=== PATIENT | male | born 1940 | race Caucasian/White ===

== ENCOUNTER 2020-01-02 17:27 | Inpatient (IN) | payer OTHER, SELFPAY ==
[2020-01-02] VITALS (10 sets, daily range): BP systolic 141–159; BP diastolic 78–92; PULSE 84–106; RESP 14–24; TEMP 36.6–36.9; O2SAT 95–100; BMI 19.4; BMI 18.5
--- NOTE | 2020-01-02 17:32 | EKG12_ITS ---
Test Reason : CP Blood Pressure : / mmHG Vent. Rate : 085 BPM Atrial Rate : 085 BPM P-R Int : 256 ms QRS Dur : 094 ms QT Int : 352 ms P-R-T Axes : 065 047 046 degrees QTc Int : 418 ms Sinus rhythm with 1st degree A-V block Otherwise normal ECG Confirmed by KAVON JUAREZ, MAYDA ([id number]), manager editorial MELYSSA RAIN ([id number]) on 01/04/2020 1:08:10 PM Referred By: TEX Confirmed By:MAYDA JACOBSON MD
--- NOTE | 2020-01-02 17:40 | RAD_ITS ---
STUDY: X-RAY CHEST REASON FOR EXAM: Male, 79 years old. Chest pain started today. TECHNIQUE: AP portable COMPARISON: None. FINDINGS: There is mild retrocardiac left basilar atelectasis or infiltrate. There is also interstitial thickening in the right lower lobe with slightly increased density possibly inflammatory.. There is apical pleural thickening bilaterally. There is no pleural effusion or pneumothorax Normal size heart. Normal mediastinum and matt. Normal visualized pulmonary arteries. Mildly calcified aortic arch and descending thoracic aorta. Dorsal spine demonstrates degenerative changes. Normal visualized ribs, clavicles, and shoulders. There is no demonstrated abnormality of the visualized soft tissue structures of the upper abdomen. RAD/Chest 1 View (Portable) IMPRESSION: Mild subsegmental atelectasis or infiltrate in left lower lobe and prominence of the interstitial markings and slightly increased density the right base possibly inflammatory. Electronically Signed: Juan A Christianson MD at 17:59 EDT , Service support ,
--- NOTE | 2020-01-02 17:40 | ED.VIS.GEN ---
History of Present Illness Chief Complaint: Chest Pain Informant: Patient Onset: Today, Hours - 8 hours Context: Sudden Onset Timing: Continuous Current Severity: Moderate Maximum Severity: Severe Worsened by: Mowing the grass Associated Symptoms: SOB Narrative: 79-year-old male with no reported medical problems presents with chest pain. He states it started at 9 AM this morning. This was just after he ate a bowl of cereal. He does say he has a history of GERD and does say that it is burning. But he also describes pain all over his chest. He went to mow the grass and was able to finish mowing the yard however afterwards his chest pain was worse. He does complain of shortness of breath. He has not had a fever or cough. Prior to this he was otherwise well. He states his last stress test was 20 years ago. Denies smoking history. Denies EtOH use. Past Medical History - Allergies and Home Meds Allergies/Adverse Reactions: Allergies No Known Allergies Allergy (Verified 01/02/20 17:29) Past Medical History: - - Hiatal Hernia Lives: With Family Smoking Status: Never smoker Alcohol: None Drugs: None - Family History Maternal Family History: Reports: - - no CAD Review of Systems All systems negative except as indicated General: Denies: Chills, Fever Eyes: Denies: Visual changes - left, Visual changes - right, Visual changes - bilaterally, Blurred vision - left, Blurred vision - right, Blurred Vision - bilaterally, Diplopia, -, - Cardiovascular: Reports: Chest pain Respiratory: Reports: Dyspnea Gastrointestinal: Reports: Nausea. Denies: Vomiting Genitourinary: Denies: Dysuria Musculoskeletal: Denies: Myalgias Skin: Denies: Rash, Abscess Neurological: Denies: Headache Psych: Denies: Depression Physical Exam Vital Signs/Narrative: Vital Signs Temp Pulse Resp BP Pulse Ox 01/02/20 17:28 97.8 F 86 15 159/92 H 95 Inital Vital Signs reviewed: Yes General: Well nourished, Well developed Head: Normocephalic, Atraumatic Eyes: Perrl, EOMI Neck: Supple, Nontender Cardiovascular: Regular rate, Regular rhythm, No murmurs Respiratory: No distress, CTA bilaterally, Chest nontender Abdomen: Soft, Nontender, Nondistended Extremities: Nontender, No edema Skin: Normal color, No rash, Cyanosis, Diaphoresis Neurological: Alert, Oriented x3 Psychological: Normal affect Diagnostic/Tx/Re-eval Chest X-Ray - ED: 1 View, - - Mild subsegmental atelectasis or infiltrate in left lower lobe and prominence of the interstitial markings and slightly increased density the right base possibly inflammatory. - Rhythm Strip Rhythm Strip: Sinus Rhythm Rate: 85 - AZ interval 256 msQRS duration 94 msQTC 418 ms. first-degree AV block - Medical Decision Making Patient presented today with chest pain which she had had for several hours prior to arrival. His EKG showed a first-degree AV block but there is no sign of ischemic change. He did take Tylenol prior to arrival when he got aspirin here and he states that his pain had improved. Chest x-ray showed concern for infiltrate which could possibly be inflammatory. His lab work showed that he is slightly dehydrated but his troponin is negative. I did reinterviewed him about his exposure to COVID?19 given that he has infiltrates that look inflammatory on his x-ray. He does state they have people coming in and out of his house but there are mostly family members. These family members also going to town and other households. He is not sure of what his risk would be. Given that he had chest pain and findings concerning for pneumonia I did admit the patient. The admitting provider did not want to start antibiotics right away. Patient was again given aspirin and was chest pain-free on admission. Admitting physician did wish to have a COVID?19 screening on him. This is pending on admission. ED Disposition - Plan for ED Patient: Disposition: Acute Care [facility] Diagnosis: Chest pain, Infiltrate noted on imaging study, Abnormal chest xray
[2020-01-02 17:47] LABS: Absolute Lymphocyte Count 1.66 X10^3/uL (0.83-4.51); Absolute Neutrophil Count 8.1 X10^3/uL (2.0-7.7); Basophil# 0.02 X10^3/uL; Basophil% 0.2 % (0-1); Eosinophil# 0.09 X10^3/uL; Eosinophils% 0.8 % (0-5); Hematocrit 41.2 % (40-54); Hemoglobin 12.9 g/dL (13.0-16.5); Lymphocyte # 1.66 X10^3/ul (4.0); Lymphocyte % 15.7 % (19-41); Mean Corp Hgb Conc 31.3 g/dL (32-36); Mean Corpuscular Hgb 28.7 pg (27.0-32.0); Mean Corpuscular Volume 91.6 fL (80-94); Mean Platelet Vol. 9.4 fl (6.2-12.0); Monocyte% 6.6 % (0-10); NRBC Flagged by Analyzer 0 % (0-5); Neutrophil % 76.5 % (47-70); Platelet Count 206 K/mm3 (150-450); RBC Distribution Width CV 12.8 % (11.6-14.6); RBC Distribution Width SD 42.5 fl (35.1-43.9); White Blood Count 10.6 K/mm3 (4.4-11.0)
[2020-01-02] MEDS: Aspirin 81 MG TAB.CHEW 324 MG PO (17:48)
[2020-01-02 17:56] LABS: Anion Gap 5 (5-15); BUN 28 mg/dL (7-18); BUN/Creat Ratio 27.5 RATIO (10-20); Calcium,Total 9.9 mg/dL (8.5-10.1); Chloride 103 mmol/L (98-107); Creatinine, Serum 1.02 mg/dL (0.70-1.30); EST Glomerular Filtration Rate 75 mL/min (>60); Est Glom Filt Rate - Afr Amer 90 mL/min (>60); Estimated Creatinine Clearance 50.25 ml/min; Glucose 105 mg/dL (74-106); Potassium 4.1 mmol/L (3.5-5.1); Sodium Level 139 mmol/L (136-145)
--- NOTE | 2020-01-02 19:04 | HP.PCM_ITS ---
Problem List (1) Chest pain Status: Acute (2) Abnormal chest xray Status: Acute History of Present Illness Date of Admission: 01/02/20 Chief Complaint: chest pain The patient is a 79 year old M awoke today and later started having chest pain. Chest pain was across his chest and went up into his jaw. It was associated with some numbness down his arm as well as shortness of breath. Patient denies having symptoms similar to this. Chest pain was at rest and he would mow the lawn had no difficulties in turn when he came back. Patient presented to the emergency room for evaluation. Patient's work-up in the emergency room was unremarkable with exception of chest x-ray that showed a possible right lower lobe infiltrate versus atelectasis. Patient states that there is people in and out of his house but denies any overt sick contacts. Patient otherwise feels well. [] Past Medical History Allergies No Known Allergies Allergy (Verified 01/02/20 17:29) Home Medications: Ambulatory Orders Medication Instructions Recorded Aspirin 81 mg PO DAILY 01/02/20 Ferrous Sulfate [Iron] 325 mg PO DAILY 01/02/20 Lives: With Family Smoking Status: Never smoker Alcohol: None Drugs: None - *Family History Maternal History Items: - - no CAD Review of Systems Constitutional: Denies: Anorexia, Chills, Fever, Night Sweats Eyes: Denies: Blurred vision, Double vision HEENT: Denies: Head Aches, Sinus Congestion, Sinus Drainage Cardiovascular: Reports: Chest Pain. Denies: Edema Respiratory: Reports: Shortness of Breath. Denies: Cough, Sputum production Gastrointestinal: Denies: Abdominal Pain, Nausea, Vomiting Genitourinary: Denies: Dysuria Musculoskeletal: Denies: Joint Pain, Joint Tenderness Skin: Denies: Rash, Wounds Psychiatric: Denies: Anxiety, Depression Hematologic/ Lymphatic: Denies: Easy Bruising, Easy Bleeding, Hx of blood clot Comment: All review of systems were negative except as mentioned above in the history of present illness and the other review of systems. VTE Information - Inpt Only VTE Present on Admission: No VTE Mechan Device Prophylaxis: None VTE Pharm Prophylaxis ordered?: No Reason prophylaxis not ordered:: Treatment Not Indicated Patient Problems: Active and Suspected Problems Chest pain (Acute) Abnormal chest xray (Acute) - Physical Exam Vitals/I&O's: Vital Signs Temp Pulse Resp BP Pulse Ox 36.6 C 84 19 H 141/78 H 99 01/02/20 17:28 01/02/20 18:27 01/02/20 18:27 01/02/20 18:27 01/02/20 18:27 Oxygen Delivery Method Room Air Weight: 61.5 kg Body Mass Index (BMI) 19.4 General: Alert, Cooperative, No apparent distress HEENT: Atraumatic, Normocephalic Neck: No Nodes, Thyroid Normal Size and Texture Lungs: Normal air movement, - - RLL crackles. Cardiovascular: Regular rate, Regular Rhythm, Normal S1, Normal S2, No murmurs Abdomen: Bowel Sounds Present, Soft, Non Tender, Non-Distended, No Hepato- splenomegaly Extremities: No edema, No Calf Tenderness Skin: No rashes, No breakdown Musculoskeletal: No Tenderness to Palpation of Joints or Extremities, No Muscle Wasting Psych/Mental Status: Normal Affect, Appropriate Laboratory Results 01/02/20 17:30: WBC 10.6, RBC 4.50 L, Hgb 12.9 L, Hct 41.2, MCV 91.6, MCH 28.7, MCHC 31.3 L, RDW Std Deviation 42.5, RDW Coeff of Mayte 12.8, Plt Count 206, MPV 9.4, Immature Gran % (Auto) 0.200, Neut % (Auto) 76.5 H, Lymph % (Auto) 15.7 L, Mckinley % (Auto) 6.6, Eos % (Auto) 0.8, Baso % (Auto) 0.2, Absolute Neuts (auto) 8.1 H, Absolute Lymphs (auto) 1.66, Nucleated RBC % 0 01/02/20 17:30: Sodium 139, Potassium 4.1, Chloride 103, Carbon Dioxide 31.0, Anion Gap 5, BUN 28 H, Creatinine 1.02, Estim Creat Clear Calc 50.25, Est GFR (MDRD) Af Amer 90, Est GFR (MDRD) Non-Af 75, BUN/Creatinine Ratio 27.5 H, Glucose 105, Calcium 9.9, Troponin I < 0.015 Chest x-ray personally reviewed and showed right lower lobe infiltrate versus atelectasis. EKG reviewed and showed normal sinus rhythm with a first-degree AV block. No comparison available Assessment/Plan All Active Problems Chest pain (Acute) Abnormal chest xray (Acute) 1. Chest pain, atypical: Concerning signs given the radiation paresthesias that he is. [place] score of 128. ROLAND score of 3. Patient already on aspirin and will continue. We will cycle troponins and check a stress echocardiogram. Patient made aware that he would not be able to have a stress test until the . Additionally, given the atypical nature, I will check a d-dimer. If elevated for age then would recommend a CT angiogram of the chest and I did discuss this possibility with the patient and his son at bedside. 2. Abnormal chest x-ray. Clinically feel the patient has pneumonia that he does have some crackles in the bases. He is afebrile and has no leukocytosis. COVID-19 testing ordered in the emergency room. Would hold off on antibiotics at this time as clinically he is stable however if his condition worsens then would need to reconsider next. Will add incentive spirometer. 3. 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 Will ask for nutrition to make further recommendations. 4. VTE prophylaxis: Low risk at this time though this may be subject to change based on further findings. No VTE prophylaxis at this time. 5. Advanced care planning: Discussed with the patient. Patient wishes to be full CODE STATUS. 6. Disposition: Pending additional testing. Patient will be admitted as length of stay will be greater than 2 midnights. Inpatient E&M: [id number] Init Hosp L3
--- NOTE | 2020-01-02 19:53 | EKG12_ITS ---
Test Reason : RHYTHM Blood Pressure : / mmHG Vent. Rate : 108 BPM Atrial Rate : 108 BPM P-R Int : 226 ms QRS Dur : 118 ms QT Int : 322 ms P-R-T Axes : 043 036 007 degrees QTc Int : 431 ms Sinus tachycardia with 1st degree A-V block Right bundle branch block ST elevation consider inferolateral injury or acute infarct Abnormal ECG When compared with ECG of 02-JAN-2020 19:43, MANUAL COMPARISON REQUIRED, DATA IS UNCONFIRMED Confirmed by KAVON JUAREZ, MAYDA ([id number]), commercial production editor MELYSSA RAIN ([id number]) on 01/05/2020 10:17:37 AM Referred By: CHANA Confirmed By:MAYDA JACOBSON MD
--- NOTE | 2020-01-02 20:15 | NURSING ---
Dr. Horn notified that patient is having long runs of V-Tach. Notified Dr. Horn that patient has not had a magnesium level checked. Dr. Horn states that she will review the chart and enter orders.
[2020-01-02 20:22] LABS: D-Dimer Quantitative (DVT/PE) 2.03 FEU/ug/m (0.27-0.49)
--- NOTE | 2020-01-02 20:44 | CT_ITS ---
STUDY: CTA CHEST REASON FOR EXAM: Male, 79 years old. R/O PE RADIATION DOSAGE (If Supplied By Facility): CTDIvol = ( 6.07 ) mGy, DLP = ( 229.79 ) mGycm TECHNIQUE: The examination was performed with the intravenous administration of IV 100 ML ISOVUE 370. Post-processing of the angiographic images was performed, with multiplanar reformation and 3D reconstruction. Individualized dose optimization techniques were used for this CT. COMPARISON: Portable chest January 02, 2020. FINDINGS: Normal enhancement of the main pulmonary artery and right and left pulmonary arteries. Normal enhancement of the bilateral peripheral pulmonary arteries. There is no demonstrated pulmonary embolism. Mild atherosclerotic changes of the aorta without evidence for aneurysm There is no demonstrated aortic dissection. Normal heart and pericardium. Tiny calcified mediastinal and hilar nodes consistent with old granulomatous disease. Normal visualized trachea and bronchi. The lungs are well expanded. Mild interstitial thickening and emphysematous changes. There is mild right basilar atelectasis or infiltrates.. Calcified granulomata within the right middle and lower lobes mild pleural parenchymal scarring in the apices. No pleural effusion or pneumothorax. Normal chest wall structures. Dorsal spine demonstrates mild spondylosis. Normal visualized upper abdomen. CT/CTA Chest W/WO Contrast IMPRESSION: Mild chronic interstitial changes and old granulomatous disease. Mild right basilar atelectasis or infiltrate. No evidence for pulmonary embolus Electronically Signed: Juan A Christianson MD at 21:29 EDT , Service support ,
[2020-01-02 20:48] LABS: AST(SGOT) 23 U/L (15-37); Alanine Aminotransfer ALT/SGPT 21 U/L (16-61); Albumin, Serum 3.7 g/dL (3.2-5.0); Alkaline Phosphatase 90 U/L (45-117); Bilirubin, Direct 0.19 mg/dL (0.00-0.30); Globulin 4.4 g/dL (2.2-4.2); Magnesium 2.1 mg/dL (1.6-2.6); Protein, Total 8.1 g/dL (6.4-8.2)
[2020-01-02 21:43] LABS: Probe Check PASS; Specimen Processing Control PASS
[2020-01-02] MEDS: Enoxaparin 60 MG/0.6 ML Syringe SC (22:02)
[2020-01-02] MEDS: Acetaminophen 325 MG Tablet 650 MG PO (22:08)
--- NOTE | 2020-01-02 23:54 | PCM.PN.BLA ---
Progress Note Called about patient's elevated d-dimer of 2.03. Requested CTA of the chest - negative for acute PE. COVID-19 test negative Patient's troponin elevated to 0.214 PLAN: Started on therapeutic Lovenox Trend troponins We will consult cardiology in am STROKE Vital Signs/Narrative: Vital Signs Temp Pulse Resp BP Pulse Ox 01/02/20 22:09 98.4 F 88 16 142/89 H 98 01/02/20 22:00 88 01/02/20 20:30 24 H 99
[2020-01-03] VITALS (47 sets, daily range): BP systolic 56–116; BP diastolic 24–71; PULSE 65–135; RESP 15–32; TEMP 36.3–38.1; O2SAT 92–100
--- NOTE | 2020-01-03 00:29 | NURSING ---
Patient notified this nurse that his home CPAP setting is [address] Horn notified, telephone order received.
[2020-01-03] MEDS: Nitroglycerin (INPATIENT USE) 0.4 MG TAB.SUBL SUBLINGUAL ×2 (03:47→03:53)
--- NOTE | 2020-01-03 03:58 | NURSING ---
Patient's blood pressure dropped to 62/36 after second nitro tablet[address] Dr. Horn paged for IVF bolus order.
--- NOTE | 2020-01-03 04:07 | NURSING ---
Patient's BP is 63/34. Dr. Horn paged second time via paper products machine operator.
--- NOTE | 2020-01-03 04:18 | NURSING ---
Dr. Horn returned page, notified of BP change after nitro, order for IVF bolus received. Bolus started.
[2020-01-03] MEDS: Enoxaparin 60 MG/0.6 ML Syringe SC (06:18)
[2020-01-03 07:12] LABS: Cholesterol 217 mg/dL (200); High Density Lipoprotein 59 mg/dL; Triglycerides 60 mg/dL; Very Low Density Lipoprotein 12 mg/dL (5-40)
[2020-01-03] MEDS: Ferrous Sulfate 325 MG Tablet PO (08:58)
[2020-01-03] MEDS: Aspirin 81 MG TAB.CHEW PO (08:58)
--- NOTE | 2020-01-03 09:00 | CON.PCM_ITS ---
Reason for Consult Date of Consultation: 01/03/20 Reason for Consultation: Chest discomfort History of Present Illness: The patient is a 79 year old M with no previous significant cardiac history who presented to the hospital last night complaining of chest discomfort. He says that he has apparently been having this chest discomfort over the last few weeks but it appeared to get worse yesterday. It was not associated with eating is not necessarily been associated with activity. He seems to have it when he takes a deep breath. He has had no cough no syncope no dizziness no diaphoresis no pedal edema. He is usually on minimal medical therapy. He presented to the emergency room was evaluated his EKG was noted to be normal and cardiac enzymes were minimally abnormal. In the night he did have an episode of a tachycardia which was unbeknownst to him. He did have an episode in the night where he had some chest discomfort required sublingual nitroglycerin with dropping of his blood pressure and requiring a fluid bolus. He currently is feeling well with no significant discomfort. [] Past Medical History Allergies/Adverse Reactions: Allergies No Known Allergies Allergy (Verified 01/02/20 17:29) Home Medications: Ambulatory Orders Medication Instructions Recorded Aspirin 81 mg PO DAILY 01/02/20 Ferrous Sulfate [Iron] 325 mg PO DAILY 01/02/20 Surgical History: no surgical history - *Family History Maternal History Items: - - no CAD Lives: With Family Smoking Status: Never smoker Alcohol: None Drugs: None Review of Systems - Review of Systems General: Denies: Fever, Night Sweats, Fatigue HEENT: Denies: Vision Change Cardiovascular: Reports: Chest Discomfort, Chest Discomfort at Rest. Denies: Shortness of Breath, Orthopnea, PND, Peripheral Edema, Palpitations, Lightheadedness, Dizziness, Near Syncope, Syncope Respiratory: Denies: Cough, Sputum Production, Hemoptysis Gastrointestinal: Denies: Hematemesis, Hematochezia, Melena Genitourinary: Denies: Dysuria, Hematuria Skin: Denies: Rash Neurological: Denies: Dizziness Psychiatric: Denies: Anxiety Subjectve: Pleasant gentleman in no distress Objective: Vital Signs Temp Pulse Resp BP Pulse Ox 98.5 F 80 16 93/56 L 97 01/03/20 06:17 01/03/20 06:17 01/03/20 06:17 01/03/20 06:17 01/03/20 06:17 Oxygen Delivery Method Room Air Weight: 133 lb Body Mass Index (BMI) 18.5 Intake and Output for Last 24 Hours 01/01/20 01/02/20 01/03/20 23:59 23:59 23:59 Intake Total 1340 / 1340 Balance 1340 / 1340 General: Awake, Alert, Oriented x 3 HEENT: PERRL, EOMI, Sclera Non Icteric Neck: Supple, Good ROM, No Lymph Node Enlargement Lungs: Clear to auscultation Cardiovascular: Regular Rhythm, Normal S1, Normal S2, No Murmurs, No Rubs, No Gallops Vascular: No Carotid Bruits, Normal Femoral Pulses, Normal Radial Pulses, Normal Dorsalis Pedal Pulse, Normal Posterior Tibial Pulses Abdomen: Bowel Sounds Present, Soft, Non Tender, No HSM, No Organomegaly Extremities: No Cyanosis, No Clubbing, No edema Musculoskeletal: No Erythema Skin: No Rashes Lymphatic: No Lymph Node Enlargement Neurological: No Focal Motor or Sensory Deficit Psych/Mental Status: Appropriate 01/02/20 17:30: WBC 10.6, RBC 4.50 L, Hgb 12.9 L, Hct 41.2, MCV 91.6, MCH 28.7, MCHC 31.3 L, Plt Count 206, MPV 9.4, Immature Gran % (Auto) 0.200, Neut % (Auto) 76.5 H, Lymph % (Auto) 15.7 L, [place] % (Auto) 6.6, Eos % (Auto) 0.8, Baso % (Auto) 0.2, Absolute Neuts (auto) 8.1 H, Nucleated RBC % 0 01/02/20 17:30: Sodium 139, Potassium 4.1, Chloride 103, Carbon Dioxide 31.0, Anion Gap 5, BUN 28 H, Creatinine 1.02, Est GFR (MDRD) Af Amer 90, Est GFR (MDRD) Non-Af 75, BUN/Creatinine Ratio 27.5 H, Glucose 105, Calcium 9.9, Troponin I < 0.015 01/02/20 17:30: D-Dimer Quant (PE/DVT) 2.03 H* 01/02/20 17:30: Magnesium 2.1, Total Bilirubin 0.60, Direct Bilirubin 0.19 01/02/20 20:49: Troponin I 0.214 H 01/02/20 23:53: Troponin I 0.281 H 01/03/20 05:15: Triglycerides 60, Cholesterol 217 H, LDL Cholesterol 146 H, VLDL Cholesterol 12, HDL Cholesterol 59 Rhythm: EKG: Normal sinus rhythm with no acute changes ECHO: Stress Test: Cardiac Cath: PCI: CT Surgery: Holter monitor: EPS: PPM: CXR: Chest CT Scan: Assessment/Plan 1. Non-ST elevation myocardial infarction/acute coronary syndrome * He presents with chest discomfort which is concerning for an acute coronary syndrome. * Recommendation will be to start aspirin, clopidogrel, and beta-cody. * Based on the symptomatology I would recommend a cardiac catheterization in a.m. At this particular time he appears to be stable and there is no reason to take him to the lab right now the risk benefits and alternatives of been explained to him he understands and agrees to proceed. * High intensity statin has been started. 2. Cardiac arrhythmia * Patient was noted to have a wide-complex tachycardia. However there was one-to-one conduction noted in the above is likely suggestive of an atrial tachyarrhythmia with aberrancy. * Beta-blockers have been started which would be continued * Electrolytes will be checked. * * Thank you for allowing me to participate in the care of your patient. Please don't hesitate to call if any issues arise.
[2020-01-03] MEDS: Clopidogrel Bisulfate 300 MG Tablet PO (11:31)
--- NOTE | 2020-01-03 11:33 | PN_ITS ---
<Cliff Craig - Last Filed: 01/03/20 11:33> Patient Problems: Active and Suspected Problems Chest pain (Acute) Abnormal chest xray (Acute) Infiltrate noted on imaging study (Acute) Reason for Visit: Pt resting comfortably in bed. Ongoing chest pain . 4/10 pressure across chest. SOB with exertion especially walking uphill. No diaphoresis or nausea, no radiation into neck/jaw/arms. Pt agreeable to cath tomorrow. Vitals/I&O's: Vital Signs Temp Pulse Resp BP Pulse Ox 99.7 F H 125 H 24 H 89/46 L 97 01/03/20 11:30 01/03/20 11:30 01/03/20 11:30 01/03/20 11:30 01/03/20 11:30 Oxygen Delivery Method Room Air Weight: 133 lb Body Mass Index (BMI) 18.5 Intake and Output for Last 24 Hours 01/01/20 01/02/20 01/03/20 23:59 23:59 23:59 Intake Total 1340 / 1340 Balance 1340 / 1340 General: Alert, Oriented x3, Cooperative HEENT: Atraumatic, PERRLA, EOMI, Normocephalic Neck: Supple, No JVD, Negative Carotid Bruits Lungs: Clear to auscultation, Normal air movement Cardiovascular: Regular rate, No murmurs Abdomen: Bowel Sounds Present, Soft, Non Tender Extremities: No edema, Capillary Refill Less than 3 Seconds Skin: No rashes, No breakdown Musculoskeletal: No Tenderness to Palpation of Joints or Extremities Neurological: Cranial nerves II-XII grossly intact Psych/Mental Status: Normal Affect, Appropriate, Alert and oriented to time, place, person, mood and affect Laboratory Results 01/02/20 17:30: WBC 10.6, RBC 4.50 L, Hgb 12.9 L, Hct 41.2, MCV 91.6, MCH 28.7, MCHC 31.3 L, RDW Std Deviation 42.5, RDW Coeff of Mayte 12.8, Plt Count 206, MPV 9.4, Immature Gran % (Auto) 0.200, Neut % (Auto) 76.5 H, Lymph % (Auto) 15.7 L, [place] % (Auto) 6.6, Eos % (Auto) 0.8, Baso % (Auto) 0.2, Absolute Neuts (auto) 8.1 H, Absolute Lymphs (auto) 1.66, Nucleated RBC % 0 01/02/20 17:30: Sodium 139, Potassium 4.1, Chloride 103, Carbon Dioxide 31.0, Anion Gap 5, BUN 28 H, Creatinine 1.02, Estim Creat Clear Calc 50.25, Est GFR (MDRD) Af Amer 90, Est GFR (MDRD) Non-Af 75, BUN/Creatinine Ratio 27.5 H, Glucose 105, Calcium 9.9, Troponin I < 0.015 01/02/20 17:30: D-Dimer Quant (PE/DVT) 2.03 H* 01/02/20 17:30: Magnesium 2.1, Total Bilirubin 0.60, Direct Bilirubin 0.19, AST 23, ALT 21, Alkaline Phosphatase 90, Total Protein 8.1, Albumin 3.7, Globulin 4.4 H 01/02/20 20:30: COVID-19 ([place]) Negative 01/02/20 20:49: Troponin I 0.214 H 01/02/20 23:53: Troponin I 0.281 H 01/03/20 05:15: Triglycerides 60, Cholesterol 217 H, LDL Cholesterol 146 H, VLDL Cholesterol 12, HDL Cholesterol 59 Current Medications Acetaminophen (Tylenol) 650 mg PO Q6H PRN PRN PRN Reason: Pain Score 1-10/Temp > 100.7 F Last Admin: 01/02/20 22:08 Dose: 650 mg Documented by: Aspirin ([facility], [facility]) [facility] Last Admin: 01/03/20 08:58 Dose: 81 mg Documented by: Clopidogrel Bisulfate (Plavix) 75 mg PO DAILY [facility] Dextrose (D50w Syringe) 0 gm IV X1 PRN; Protocol PRN Reason: Hypoglycemia Enoxaparin Sodium (Lovenox) 60 mg SC Q12@0600,1800 [facility] Last Admin: 01/03/20 06:18 Dose: 60 mg Documented by: Ferrous Sulfate (Ferrous Sulfate) [facility] Last Admin: 01/03/20 08:58 Dose: 325 mg Documented by: Glucagon () 1 mg IM .X1 PRN PRN Reason: Hypoglycemia Sodium Chloride () 1,000 mls @ 15 mls/hr IV .Q48H [facility] Metoprolol Tartrate (Lopressor (Beta Davey)) 12.5 mg PO BID [facility] Morphine Sulfate () 1 mg IV Q4H PRN PRN PRN Reason: Pain Score 6-10/10 Ondansetron HCl (Zofran) 4 mg IV Q8H PRN PRN PRN Reason: NAUSEA/VOMITING Sodium Chloride () 10 - 40 ml IV UD PRN PRN Reason: SALINE FLUSH STROKE Vital Signs/Narrative: Vital Signs Temp Pulse Resp BP Pulse Ox 01/03/20 11:30 99.7 F H 125 H 24 H 89/46 L 97 Medical Necessity - Tobacco Use Smoking Status: Never smoker Assessment/Plan All Active Problems Chest pain (Acute) Abnormal chest xray (Acute) Infiltrate noted on imaging study (Acute) 1. NSTEMI - troponin trending up, ongoing CP. Cath tomorrow per cardio. Nonspecific ST segment changes, t wave flattening. D dimer elevated - CTA without PE. TChol 217, LDL 146. Stopped nitro due to hypotension. Continue BID lovenox 2. Nonsustained Vtach - beta davey initiated. 3. Hx iron deficiency - continue PO iron replacement, mild anemia. 4. Possible underlying chronic lung disease - CA shows old granulomatous dz, chr onic interstitial changes - should have PFTs as o/p. DVT ppx: lovenox This patient was seen by Cliff Craig PA-C under the supervision of Dr. Skelton. <Noe Skelton F - Last Filed: 01/03/20 14:25> Vitals/I&O's: Vital Signs Temp Pulse Resp BP Pulse Ox 97.3 F L 82 32 H 89/58 L 100 01/03/20 12:30 01/03/20 13:49 01/03/20 13:27 01/03/20 13:49 01/03/20 13:27 Oxygen Flow Rate (L/min) 3 Oxygen Delivery Method Room Air Weight: 133 lb 0.007 oz Body Mass Index (BMI) 18.5 Intake and Output for Last 24 Hours 01/01/20 01/02/20 01/03/20 23:59 23:59 23:59 Intake Total 2065.95 / 2065.95 Balance 2065.95 / 2065.95 Laboratory Results 01/02/20 17:30: WBC 10.6, RBC 4.50 L, Hgb 12.9 L, Hct 41.2, MCV 91.6, MCH 28.7, MCHC 31.3 L, RDW Std Deviation 42.5, RDW Coeff of Mayte 12.8, Plt Count 206, MPV 9.4, Immature Gran % (Auto) 0.200, Neut % (Auto) 76.5 H, Lymph % (Auto) 15.7 L, [place] % (Auto) 6.6, Eos % (Auto) 0.8, Baso % (Auto) 0.2, Absolute Neuts (auto) 8.1 H, Absolute Lymphs (auto) 1.66, Nucleated RBC % 0 01/02/20 17:30: Sodium 139, Potassium 4.1, Chloride 103, Carbon Dioxide 31.0, Anion Gap 5, BUN 28 H, Creatinine 1.02, Estim Creat Clear Calc 50.25, Est GFR (MDRD) Af Amer 90, Est GFR (MDRD) Non-Af 75, BUN/Creatinine Ratio 27.5 H, Glucose 105, Calcium 9.9, Troponin I < 0.015 01/02/20 17:30: D-Dimer Quant (PE/DVT) 2.03 H* 01/02/20 17:30: Magnesium 2.1, Total Bilirubin 0.60, Direct Bilirubin 0.19, AST 23, ALT 21, Alkaline Phosphatase 90, Total Protein 8.1, Albumin 3.7, Globulin 4.4 H 01/02/20 20:30: COVID-19 ([place]) Negative 01/02/20 20:49: Troponin I 0.214 H 01/02/20 23:53: Troponin I 0.281 H 01/03/20 05:15: Triglycerides 60, Cholesterol 217 H, LDL Cholesterol 146 H, VLDL Cholesterol 12, HDL Cholesterol 59 Current Medications Acetaminophen (Tylenol) 650 mg PO Q6H PRN PRN PRN Reason: Pain Score 1-10/Temp > 100.7 F Last Admin: 01/02/20 22:08 Dose: 650 mg Documented by: Aspirin (A[facility]in, Baby) [facility] Last Admin: 01/03/20 08:58 Dose: 81 mg Documented by: Clopidogrel Bisulfate (Plavix) 75 mg PO DAILY [facility] Dextrose (D50w Syringe) 0 gm IV X1 PRN; Protocol PRN Reason: Hypoglycemia Enoxaparin Sodium (Lovenox) 60 mg SC Q12@0600,1800 [facility] Last Admin: 01/03/20 06:18 Dose: 60 mg Documented by: Ferrous Sulfate (Ferrous Sulfate) 325 mg PO DAILYCM [facility] Last Admin: 01/03/20 08:58 Dose: 325 mg Documented by: Glucagon () 1 mg IM .X1 PRN PRN Reason: Hypoglycemia Sodium Chloride () 1,000 mls @ 15 mls/hr IV .Q48H [facility] Sodium Chloride () 1,000 mls @ 100 mls/hr IV .Q10H [facility] Last Admin: 01/03/20 12:28 Dose: 100 mls/hr Documented by: Metoprolol Tartrate (Lopressor (Beta Davey)) 12.5 mg PO BID [facility] Last Admin: 01/03/20 13:49 Dose: Not Given Documented by: Morphine Sulfate () 1 mg IV Q4H PRN PRN PRN Reason: Pain Score 6-10/10 Ondansetron HCl (Zofran) 4 mg IV Q8H PRN PRN PRN Reason: NAUSEA/VOMITING Sodium Chloride () 10 - 40 ml IV UD PRN PRN Reason: SALINE FLUSH Last Admin: 01/03/20 12:22 Dose: 10 ml Documented by: STROKE Vital Signs/Narrative: Vital Signs Temp Pulse Resp BP BP Pulse Ox 01/03/20 13:49 82 89/58 L 01/03/20 13:27 82 32 H 89/58 L 100 01/03/20 13:15 82 30 H 92/62 100 01/03/20 13:06 85 30 H 99/69 100 01/03/20 12:30 97.3 F L 80 24 H 104/68 98 01/03/20 12:23 82 103/59 L 01/03/20 12:20 135 H 100/53 L 01/03/20 12:15 100/53 L 01/03/20 12:12 116/71 01/03/20 12:10 100.5 F H 135 H 22 H 93/58 L 95 01/03/20 11:30 99.7 F H 125 H 24 H 89/46 L 97 01/03/20 11:00 93 Addendum: Dr. Skelton I personally examined the patient and reviewed the chart. I agree with the above. 79-year-old male presents from home with chest pain that radiated across his chest and up into his jaw. He did have troponins which started to rise to 0.281. He was scheduled for heart cath tomorrow by cardiology however he had increasing pain and became tachycardic and had some nonspecific ST changes, there is concern for possible 2-1 a flutter versus aberrant conduction. Either way the case was discussed with cardiology who felt that it would be prudent to take him for a heart cath this afternoon. When his troponins elen he was started on aspirin, Plavix, and therapeutic Lovenox. He was also started on metoprolol as his heart rate started increasing after this event, he was also placed on amiodarone as well. During his episode of tachycardia said that he was having a little bit of increased chest pain however nothing near the chest pain that brought him into the hospital. Inpatient E&M: 97079 Subs Hosp L2
--- NOTE | 2020-01-03 11:41 | EKG12_ITS ---
Test Reason : CP ADMISSION Blood Pressure : / mmHG Vent. Rate : 087 BPM Atrial Rate : 087 BPM P-R Int : 256 ms QRS Dur : 094 ms QT Int : 344 ms P-R-T Axes : 067 049 051 degrees QTc Int : 413 ms Sinus rhythm with 1st degree A-V block Otherwise normal ECG No previous ECGs available Confirmed by KAVON JUAREZ, MAYDA ([id number]), editorial cartoonist MELYSSA RAIN ([id number]) on 01/05/2020 10:17:50 AM Referred By: CHANA Confirmed By:MAYDA JACOBSON MD
--- NOTE | 2020-01-03 11:59 | CPS ---
pt placed on 3 lpm for CP...nurse aware
[2020-01-03] MEDS: 0.9% Normal Saline 1,000 ML 999 ML IV (12:05)
[2020-01-03] MEDS: Metoprolol Tartrate 5 MG/5 ML Vial IV (12:20)
[2020-01-03] MEDS: 0.9% Saline Lock 10 ML Syringe IV (12:22)
--- NOTE | 2020-01-03 12:26 | EKG12_ITS ---
Test Reason : RHYTHM Blood Pressure : / mmHG Vent. Rate : 081 BPM Atrial Rate : 081 BPM P-R Int : 230 ms QRS Dur : 090 ms QT Int : 344 ms P-R-T Axes : 052 050 033 degrees QTc Int : 399 ms Sinus rhythm with sinus arrhythmia with 1st degree A-V block Otherwise normal ECG When compared with ECG of 03-JAN-2020 11:49, MANUAL COMPARISON REQUIRED, DATA IS UNCONFIRMED Confirmed by NIC JUAREZ, ADELE ([id number]), copy editor EVERETTE DOMÍNGUEZ ([id number]) on 01/08/2020 2:47:00 PM Referred By: CHANA Confirmed By:ALEX LUCERO MD
[2020-01-03] MEDS: 0.9% Normal Saline 1,000 ML 100 ML IV (12:28)
[2020-01-03] MEDS: Amiodarone 360 MG in Dextrose 5% Viaflo Bag 192.8 ML 33.3 MG CONT INF (15:15)
--- NOTE | 2020-01-03 15:23 | PN_ITS ---
Progress Note Due to patient's continued chest discomfort as well as cardiac dysrhythmia which was noted earlier today it was decided to take him to the cardiac catheterization lab. It demonstrated minimal coronary artery disease and a Takotsubo-like pattern of his left ventriculogram. He continued to have the tach arrhythmia which appeared to be an atrial tachycardia with a 2-1 block or a long RP tachycardia. * Will recommend DC clopidogrel * Start amiodarone * Echocardiogram in a.m. * When blood pressure better would start beta-cody * * Discussed with hospitalist STROKE Vital Signs/Narrative: Vital Signs Temp Pulse Resp BP BP Pulse Ox 01/03/20 15:15 107 H 24 H 79/60 L 95 01/03/20 13:49 82 89/58 L 01/03/20 13:27 82 32 H 89/58 L 100 01/03/20 13:15 82 30 H 92/62 100 01/03/20 13:06 85 30 H 99/69 100 01/03/20 12:30 97.3 F L 80 24 H 104/68 98 01/03/20 12:23 82 103/59 L 01/03/20 12:20 135 H 100/53 L 01/03/20 12:15 100/53 L 01/03/20 12:12 116/71 01/03/20 12:10 100.5 F H 135 H 22 H 93/58 L 95 01/03/20 11:30 99.7 F H 125 H 24 H 89/46 L 97
--- NOTE | 2020-01-03 15:23 | CL.D_ITS ---
Patient Name: MESERET LOVE Study Date: 01/03/2020 Performing: Leroy Soto MD Ht: 71 inches 180 cm : 1940 Wt: 132.5 lbs 60 kg Age: 79 Gender: male BSA: 1.77 PROCEDURE(S) PERFORMED [id number]/LV CLINICAL PROFILE AND INDICATIONS Indications: Suspected CAD Heart Failure: None Stress/Imaging Stress/Image Study Performed: No CONCLUSIONS Non obstructive coronary arteries Cardiomyopathy: Takotsubo RECOMMENDATIONS Medical therapy We will treat cardiac dysrhythmia. DESCRIPTION OF PROCEDURE The patient arrived to the procedure lab. The risks and benefits of the procedure as well as a full d escription of our services here and current unavailability of surgical backup were fully explained to the patient and/or their significant other prior to the catheterization. The Timeout was completed, verifying the correct patient and procedure. The patient's procedural site was prepped and draped in the usual fashion. Local anesthetic was given subcutaneously to right groin region with Lidocaine 2%. Using a modified Seldinger technique, arterial access was obtained via the right femoral artery, a 5 Fr sheath was inserted. Left Coronary Artery selective angiography was performed in multiple views u sing a 5 Fr. JL 5 catheter. Right Coronary Artery selective angiography was then performed in multipl e views using a 5 Fr. 3DRC (Nicolás) catheter. Left Ventriculography was performed in MORROW projection using a 5 Fr. Pigtail catheter. LV to AO pullback pressures were then recorded. CORONARY ANGIOGRAPHY DOMINANCE: Right Dominant LEFT HEART ASSESSMENT Left Ventricular Ejection Fraction: by LV Gram 45 % Abnormal LV wall motion. Anterior Hypokinesis - Moderate Consistent with Takotsubo cardiomyopathy. LEFT MAIN: Angiographically normal LEFT ANTERIOR DESCENDING ARTERY: Mild luminal irregularities less than 30% CIRCUMFLEX ARTERY: Mild luminal irregularities RIGHT CORONARY ARTERY: No significant disease noted COMPLICATIONS No Complications PROCEDURE MEDICATIONS Oxygen: 2 L/min via nasal cannula Amiodarone 150mg / 100ml D5W IV bolus 01/03/2020 14:38:43 Amiodarone 360mg / 200ml D5W @ 1 mg/min IV started @ 01/03/2020 14:52:50 SUMMARY OF HEMODYNAMIC DATA Time AIR REST ECG 14:13:55 AO 74/56 (64) SA 14:29:10 LV 85/9, 11 14:39:06 LV 87/9, 12 14:39:15 LV 82/11, 14 14:40:09 LVp 84/12, 15 14:40:15 AOp 74/56 (65) 14:40:20 Signed By Leroy Soto MD On 01/03/2020 15:22:59 Leroy Soto MD
--- NOTE | 2020-01-03 15:25 | ECHOCS_ITS ---
Reason For Study: Arrhythmia Procedure This was a 2D Doppler, Color Flow transthoracic echocardiogram. The study was technically difficult. Contrast injection was performed. Patient seemed to have an allergic reaction to Definity. Patient complained of lightheadedness, upset stomach, a flushing feeling, and had an increase in BP 103/58- 128/92. Nurse was notified and vitals were taken. Patient started to feel better after a few minutes. Exam performed portable in patient room. Left Ventricle Normal LV size. The estimated ejection fraction is 40 %. Stage 2 diastolic dysfunction. [place] : Hypokinetic. Mid-anteroseptal : Hypokinetic. The rest of the wall segments are normal. Right Ventricle Normal RV size. Normal systolic function. Atria Normal left atrium. Normal right atrium. Mitral Valve Normal mitral valve. Mild (1+) eccentric mitral valve insufficiency. Tricuspid Valve Normal tricuspid valve. Mild (1+) tricuspid valve insufficiency. Pulmonary artery systolic pressure is 30 mmHg. Aortic Valve Trisinus/trileaflet aortic valve. Mild (1+) eccentric aortic valve insufficiency. Pulmonic Valve Normal pulmonic valve. Great Vessels Mild to moderately dilated aortic root. The pulmonary artery is normal size. Normal inferior vena cava. Pericardium/Pleural No pericardial effusion. Small left pleural effusion. Medication Diluted definity 2ml given slow IV push to enhance endocardial definition. MMode/2D Measurements & Calculations LVIDd: 4.2 cm IVSd: 1.3 cm Ao root diam: 4.1 cm LVIDs: 2.5 cm LVPWd: 1.1 cm LA dimension: 3.0 cm RVDd: 4.1 cm FS: 39.8 % LAV(MOD-sp4): 50.0 ml LA A4 area: 18.3 cm2 RA A4 area: 19.4 cm2 Time Measurements MV dec time: 0.20 sec Doppler Measurements & Calculations MV E max ramo: 83.4 cm/sec Lat Peak E' Ramo: 8.1 cm/sec Med Peak E' Ramo: 7.6 cm/sec MV A max ramo: 56.6 cm/sec E/E' lat: 10.3 E/E' med: 11.0 MV E/A: 1.5 MV V2 max: 94.4 cm/sec MV P1/2t max ramo: 95.0 cm/sec Ao V2 max: 140.2 cm/sec MV max P.6 mmHg MV P1/2t: 75.3 msec Ao max P.9 mmHg MV V2 mean: 44.7 cm/sec MV dec slope: 369.8 cm/sec2 MV mean P.98 mmHg MV V2 VTI: 25.9 cm MVA(P1/2t): 2.9 cm2 AI max ramo: 434.9 cm/sec LV V1 max: 101.4 cm/sec MR max ramo: 485.7 cm/sec AI max P.7 mmHg LV V1 max P.1 mmHg MR max P.4 mmHg AI dec slope: 113.0 cm/sec2 MR mean ramo: 399.1 cm/sec AI P1/2t: 1127 msec MR mean P.8 mmHg MR VTI: 183.0 cm PA V2 max: 56.9 cm/sec TR max ramo: 256.5 cm/sec TR max P.3 mmHg Interpretation Summary Normal LV size. The estimated ejection fraction is 40 %. Stage 2 diastolic dysfunction. Mild (1+) eccentric aortic valve insufficiency. Mild to moderately dilated aortic root. Mild (1+) tricuspid valve insufficiency. Contrast injection was performed. Ordering Physician: Leroy Soto Referring Physician: Guevara Wright Performed By: Bandar Stubbs RCS
--- NOTE | 2020-01-03 15:42 | NURSING ---
This RN taking over care of pt at this time.
[2020-01-03] MEDS: Morphine 2 MG/ML Syringe 1 MG IV (18:46)
[2020-01-03] MEDS: 0.9% Normal Saline 1,000 ML 60 ML IV ×2 (20:14→22:58)
[2020-01-03] MEDS: Amiodarone 360 MG in Dextrose 5% Viaflo Bag 192.8 ML 16.7 MG CONT INF (21:16)
[2020-01-03] MEDS: Metoprolol Tartrate 25 MG Tablet 12.5 MG PO (21:44)
--- NOTE | 2020-01-03 22:30 | CPS ---
Pt refused CPAP for tonight.
[2020-01-04] VITALS (16 sets, daily range): BP systolic 85–104; BP diastolic 51–68; PULSE 61–80; RESP 14–32; TEMP 37.1–37.2; O2SAT 93–97
[2020-01-04] MEDS: Enoxaparin 60 MG/0.6 ML Syringe SC (05:41)
[2020-01-04 06:03] LABS: Absolute Lymphocyte Count 1.23 X10^3/uL (0.83-4.51); Absolute Neutrophil Count 6.1 X10^3/uL (2.0-7.7); Basophil# 0.02 X10^3/uL; Basophil% 0.2 % (0-1); Eosinophil# 0.01 X10^3/uL; Eosinophils% 0.1 % (0-5); Hemoglobin 11.6 g/dL (13.0-16.5); Lymphocyte # 1.23 X10^3/ul (4.0); Mean Corp Hgb Conc 31.4 g/dL (32-36); Mean Corpuscular Hgb 29.4 pg (27.0-32.0); Mean Corpuscular Volume 93.7 fL (80-94); Monocyte# 0.84 X10^3/uL; Monocyte% 10.2 % (0-10); NRBC Flagged by Analyzer 0 % (0-5); Neutrophil # 6.07 X10^3/uL (2.7-7.7); Neutrophil % 74.1 % (47-70); Platelet Count 166 K/mm3 (150-450); RBC Distribution Width CV 13.4 % (11.6-14.6); Red Blood Count 3.95 M/mm3 (4.6-6.2); White Blood Count 8.2 K/mm3 (4.4-11.0)
[2020-01-04 06:34] LABS: Anion Gap 5 (5-15); BUN 23 mg/dL (7-18); BUN/Creat Ratio 25.2 RATIO (10-20); Chloride 108 mmol/L (98-107); Creatinine, Serum 0.91 mg/dL (0.70-1.30); EST Glomerular Filtration Rate 85 mL/min (>60); Est Glom Filt Rate - Afr Amer 103 mL/min (>60); Estimated Creatinine Clearance 55.25 ml/min; Glucose 91 mg/dL (74-106); Potassium 4.1 mmol/L (3.5-5.1); Sodium Level 138 mmol/L (136-145)
[2020-01-04] MEDS: Aspirin 81 MG TAB.CHEW PO (07:15)
[2020-01-04] MEDS: Ferrous Sulfate 325 MG Tablet PO (07:15)
--- NOTE | 2020-01-04 07:54 | PN.CARD_ITS ---
Subjectve: Patient seen and evaluated. Appears to be doing better this morning. Minimal chest pain. Objective: Vital Signs Temp Pulse Resp BP Pulse Ox 99.0 F 66 19 H 104/61 95 01/04/20 05:00 01/04/20 07:00 01/04/20 07:00 01/04/20 07:00 01/04/20 07:00 Oxygen Flow Rate (L/min) 1 Oxygen Delivery Method Room Air Weight: 133 lb 0.007 oz Body Mass Index (BMI) 18.5 Intake and Output for Last 24 Hours 01/02/20 01/03/20 01/04/20 23:59 23:59 23:59 Intake Total 3772.90 / 3789.60 373.6 / 373.6 Output Total 225 / 225 200 / 200 Balance 3547.90 / 3564.60 173.6 / 173.6 General: Awake, Alert, Oriented x 3 HEENT: PERRL, EOMI, Sclera Non Icteric Neck: Supple, Good ROM, No Lymph Node Enlargement Lungs: Clear to auscultation Cardiovascular: Regular Rhythm, Normal S1, Normal S2, No Murmurs, No Rubs, No Gallops Vascular: No Carotid Bruits, Normal Femoral Pulses, Normal Radial Pulses, Normal Dorsalis Pedal Pulse, Normal Posterior Tibial Pulses Abdomen: Bowel Sounds Present, Soft, Non Tender, No HSM, No Organomegaly Extremities: No Cyanosis, No Clubbing, No edema Musculoskeletal: No Erythema Skin: No Rashes Lymphatic: No Lymph Node Enlargement Neurological: No Focal Motor or Sensory Deficit 01/04/20 05:40: WBC 8.2, RBC 3.95 L, Hgb 11.6 L, Hct 37.0 L, MCV 93.7, MCH 29.4, MCHC 31.4 L, Plt Count 166, MPV 10.0, Immature Gran % (Auto) 0.400, Neut % (Auto) 74.1 H, Lymph % (Auto) 15.0 L, [place] % (Auto) 10.2 H, Eos % (Auto) 0.1, Baso % (Auto) 0.2, Absolute Neuts (auto) 6.1, Nucleated RBC % 0 01/04/20 05:40: Sodium 138, Potassium 4.1, Chloride 108 H, Carbon Dioxide 25.0, Anion Gap 5, BUN 23 H, Creatinine 0.91, Est GFR (MDRD) Af Amer 103, Est GFR (MDRD) Non-Af 85, BUN/Creatinine Ratio 25.2 H, Glucose 91, Calcium 8.0 L Rhythm: EKG: ECHO: Stress Test: Cardiac Cath: PCI: CT Surgery: Holter monitor: EPS: PPM: CXR: Chest CT Scan: Medical Necessity - Tobacco Use Smoking Status: Never smoker Assessment/Plan 1. Non-ST elevation myocardial infarction/acute coronary syndrome/Takotsubo * He presents with chest discomfort which is concerning for an acute coronary syndrome. * Due to persistent chest discomfort he was taken to the cardiac catheterization lab yesterday. No obstructive coronary arteries were noted. Cardiomyopathy suggestive of Takotsubo was present. * Echocardiogram will be performed today to confirm the above * Beta-blockers have been started. * Intensity statin has been started. * OFE inhibitors may be added as an outpatient. 2. Cardiac arrhythmia * Patient was noted to have a wide-complex tachycardia. However there was one-to-one conduction noted in the above is likely suggestive of an atrial tachyarrhythmia with aberrancy. * Beta-blockers have been started which would be continued * Electrolytes will be checked. * He converted on IV amiodarone and this will be maintained. * * He really wants to go home this afternoon and will see how he is doing by later today. * Thank you for allowing me to participate in the care of your patient. Please don't hesitate to call if any issues arise.
[2020-01-04] MEDS: Indomethacin 25 MG Capsule PO (08:56)
[2020-01-04] MEDS: Amiodarone 200 MG Tablet PO (09:03)
[2020-01-04] MEDS: Metoprolol Tartrate 25 MG Tablet 12.5 MG PO (09:03)
--- NOTE | 2020-01-04 10:17 | DCINST_ITS ---
- Discharge Diagnoses Current Active Problems: Current Active and Chronic Problems Chest pain (Acute) Abnormal chest xray (Acute) Infiltrate noted on imaging study (Acute) You will use the following diet at home:: Cardiac Your food should be the consistency of: Regular Your liquids should be the consistency of: Regular/Thin Discharge Activity: Return to Normal Activity Allergies/Adverse Reactions: Allergies No Known Allergies Allergy (Verified 01/02/20 17:29) Medications to take at Discharge Aspirin 81 mg PO DAILY 01/02/20 Ferrous Sulfate [Iron] 325 mg PO DAILY 01/02/20 Amiodarone HCl [Cordarone] 200 mg PO DAILY #30 tab 01/04/20 Metoprolol Tartrate [Lopressor (beta cody)] 12.5 mg PO BID #30 tab 01/04/20 The following prescriptions were given: Amiodarone HCl [Cordarone] 200 mg PO DAILY #30 tab Transmission Status: Pending to [facility]/pharmacy #[id number] Metoprolol Tartrate [Lopressor (beta cody)] 12.5 mg PO BID #30 tab Transmission Status: Pending to [facility]/pharmacy #[id number] Primary Care Physician: Guevara Wright DO [Primary Care Provider] - Please follow up with your Primary Care Physician in: 1-2 weeks Test Results: Test results from this visit will be discussed in further detail at your follow- up appointment, if applicable. Proposed Discharge Date: 01/04/20
--- NOTE | 2020-01-04 10:41 | CASEMGMT ---
EASTON TOBAR Assessment: Face to Face with patient for initial transition planning/care coordination assessment. EASTON TOBAR introduced self and role at [facility], pt voices understanding and consents to assessment at this time. Pt is sitting up in bed in no distress at this time. Pt is A/Ox4 at this time and answers all questions appropriately at this time. Care providers, pharmacy, and demographics verified at this time. Presentation: Chest pressure that started today Admitting dx: Chest pain PCP: Kyle Specialists: Pt states no current specialists. Preferred [facility]acy: [facility] Insurance: [facility] [place] Prescription Benefit: Self Living Will/HPOA: Pt states no LW/HPOA and declines need for AD info at this time. LNOK: Triny Panchal, Living Arrangements: Pt states lives with in 1 story home and states no concerns at home at this time. Pt states is independent with ADL's. Transportation: Pt states no transportation concerns at this time. DME/HHC: Pt states has a cane, grab bars, and bench in shower. Pt states no need for any further DME at this time. Pt states no hx of HHC or SNF in the past. Pt states no concerns with going home at time of discharge. 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 Pt states does not smoke or drink ETOH. Pt states no further concerns/needs at this time. CM to follow for any further discharge planning/needs. Advised pt to ask for CM if any further questions/concerns/needs arise, voices understanding. Pt Goal: Home [place]
--- NOTE | 2020-01-04 13:21 | PCM.DC.SUM ---
Discharge Date and Diagnosis - Problem List Patient Problems: Active and Suspected Problems Chest pain (Acute) Abnormal chest xray (Acute) Infiltrate noted on imaging study (Acute) Date of Admission: 01/02/20 Date of Discharge: 01/04/20 - Primary Discharge Diagnosis Acute Problems: Active Problems Chest pain and NSTEMI 2/2 takotsubo CM wide complex tachycardia Hospital Course and Treatment Imaging Results: RAD/Chest 1 View (Portable) IMPRESSION: Mild subsegmental atelectasis or infiltrate in left lower lobe and prominence of the interstitial markings and slightly increased density the right base possibly inflammatory. CT/CTA Chest W/WO Contrast IMPRESSION: Mild chronic interstitial changes and old granulomatous disease. Mild right basilar atelectasis or infiltrate. No evidence for pulmonary embolus Consults: Cardio - Charles Operations: None Procedures: 2-D Echocardiogram, Cardiac catheterization Summary of Care Provided: Hospital course: The patient is a 79 year old M who presented to the ER with c/o chest pain described as pressure that was worse with exertion especially walking uphill. He had negative CXR, elevated d dimer but negative CTA chest, negative EKG, and negative troponin. He was admitted to PCU on tele. He was given nitro and had hypotension. Pressures recovered but he had wide complex tachycardia overnight and he was started on lopressor. He had non specific ST changes on his repeat EKG and troponin elevated. He continued to have chest pain. He was taken for cardiac cath and found to have takotsubo syndrome with normal angiography and EF of 45%. He was placed on IV amiodarone and transitioned to PO prior to DC along with metoprolol. He has borderline low BP so no OFE was initiated at this time. He was discharged home in stable condition and will need follow up with his PCP in 1-2 weeks and with cardiology as directed. This patient was seen by Cliff Craig PA-C under the supervision of Doctor Lambert. [] Patient Problems: Active and Suspected Problems Chest pain (Acute) Abnormal chest xray (Acute) Infiltrate noted on imaging study (Acute) - Physical Exam Vitals/I&O's: Vital Signs Temp Pulse Resp BP Pulse Ox 98.7 F 67 20 H 102/61 95 01/04/20 10:52 01/04/20 11:00 01/04/20 10:52 01/04/20 10:52 01/04/20 10:52 Oxygen Flow Rate (L/min) 1 Oxygen Delivery Method Room Air Weight: 133 lb 0.007 oz Body Mass Index (BMI) 18.5 Intake and Output for Last 24 Hours 01/02/20 01/03/20 01/04/20 23:59 23:59 23:59 Intake Total 3772.90 / 3789.60 1443.05 / 1443.05 Output Total 225 / 225 700 / 700 Balance 3547.90 / 3564.60 743.05 / 743.05 General: Alert, Oriented x3, Cooperative HEENT: Atraumatic, PERRLA, EOMI, Normocephalic Neck: Supple, No JVD, Negative Carotid Bruits Lungs: Clear to auscultation, Normal air movement Cardiovascular: Regular rate, No murmurs Abdomen: Bowel Sounds Present, Soft, Non Tender Extremities: No edema, Capillary Refill Less than 3 Seconds Skin: No rashes, No breakdown Musculoskeletal: No Tenderness to Palpation of Joints or Extremities Neurological: Cranial nerves II-XII grossly intact Psych/Mental Status: Normal Affect, Appropriate, Alert and oriented to time, place, person, mood and affect Laboratory Results 01/04/20 05:40: WBC 8.2, RBC 3.95 L, Hgb 11.6 L, Hct 37.0 L, MCV 93.7, MCH 29.4, MCHC 31.4 L, RDW Std Deviation 46.0 H, RDW Coeff of Mayte 13.4, Plt Count 166, MPV 10.0, Immature Gran % (Auto) 0.400, Neut % (Auto) 74.1 H, Lymph % (Auto) 15.0 L, O'Brien % (Auto) 10.2 H, Eos % (Auto) 0.1, Baso % (Auto) 0.2, Absolute Neuts (auto) 6.1, Absolute Lymphs (auto) 1.23, Nucleated RBC % 0 01/04/20 05:40: Sodium 138, Potassium 4.1, Chloride 108 H, Carbon Dioxide 25.0, Anion Gap 5, BUN 23 H, Creatinine 0.91, Estim Creat Clear Calc 55.25, Est GFR (MDRD) Af Amer 103, Est GFR (MDRD) Non-Af 85, BUN/Creatinine Ratio 25.2 H, Glucose 91, Calcium 8.0 L Current Medications Acetaminophen (Tylenol) 650 mg PO Q6H PRN PRN PRN Reason: Pain Score 1-10/Temp > 100.7 F Last Admin: 01/02/20 22:08 Dose: 650 mg Documented by: Amiodarone HCl (Cordarone) 200 mg PO DAILY [facility] Last Admin: 01/04/20 09:03 Dose: 200 mg Documented by: [facility]ir[facility], Baby) [facility] Last Admin: 01/04/20 07:15 Dose: 81 mg Documented by: Dextrose (D50w Syringe) 0 gm IV X1 PRN; Protocol PRN Reason: Hypoglycemia Ferrous Sulfate (Ferrous Sulfate) [facility] Last Admin: 01/04/20 07:15 Dose: 325 mg Documented by: Glucagon () 1 mg IM .X1 PRN PRN Reason: Hypoglycemia Heparin Sodium (Beef Lung) (Heparin 500 Unit/5 Ml (100/Ml)) 500 unit IV UD PRN PRN Reason: HEPARIN FLUSH Sodium Chloride () 1,000 mls @ 15 mls/hr IV .Q48H [facility] Indomethacin (Indocin) [facility] Last Admin: 01/04/20 08:56 Dose: 25 mg Documented by: Labetalol HCl (Trandate) 5 mg IV X1 PRN PRN Reason: SBP > 160 prior to sheath pull Stop: 01/05/20 14:56 Metoprolol Tartrate (Lopressor (Beta Davey)) 12.5 mg PO BID [facility] Last Admin: 01/04/20 09:03 Dose: 12.5 mg Documented by: Morphine Sulfate () 1 mg IV Q4H PRN PRN PRN Reason: Pain Score 6-10/10 Last Admin: 01/03/20 18:46 Dose: 1 mg Documented by: Ondansetron HCl (Zofran) 4 mg IV Q8H PRN PRN PRN Reason: NAUSEA/VOMITING Sodium Chloride () 10 - 40 ml IV UD PRN PRN Reason: SALINE FLUSH Last Admin: 01/03/20 12:22 Dose: 10 ml Documented by: Discharge Diet: Low fat/ Low Cholesterol, 2000 mg Sodium Diet Discharge Activity: Return to Normal Activity Home Medications: Medications to take at Discharge Aspirin 81 mg PO DAILY 01/02/20 Ferrous Sulfate [Iron] 325 mg PO DAILY 01/02/20 Amiodarone HCl [Cordarone] 200 mg PO DAILY #30 tab 01/04/20 Metoprolol Tartrate [Lopressor (beta davey)] 12.5 mg PO BID #30 tab 01/04/20 Following Prescrptions Were Given to Patient: Amiodarone HCl [Cordarone] 200 mg PO DAILY #30 tab Transmission Status: Received by [facility]/pharmacy #[id number] Metoprolol Tartrate [Lopressor (beta davey)] 12.5 mg PO BID #30 tab Transmission Status: Received by [facility]/pharmacy #[id number] Primary Care Physician: Guevara Wright DO [Primary Care Provider] - Please follow up with your Primary Care Physician in: 1-2 weeks Please Follow Up With: Leroy Soto MD When: as directed Disposition: Home Minutes spent on discharge:: 35 Patient Condition:: Stable Medical Necessity - Tobacco Use Smoking Status: Never smoker Meaningful Use Info Meaningful Use Diagnoses (Choose all that apply): None applicable
== END 2020-01-04 16:38 | disposition home or self-care (01) | DRG 287 ==
LOC: ED 17:55 → PCU 20:13
PROVIDERS: Internal Medicine; Physician Assistant; Emergency Provider Student in an Organized Health Care Education/Training Program; PCP Family Medicine; Visit Provider Internal Medicine
DX: I51.81 Takotsubo syndrome (principal); I47.2 Ventricular tachycardia; I25.10 Atherosclerotic heart disease of native coronary artery without angina pectoris; D50.9 Iron deficiency anemia, unspecified; Z79.82 Long term (current) use of aspirin; Z79.899 Other long term (current) drug therapy
CPT/HCPCS: 36415; 71045; 71275; 80048; 80061; 80076; 83735; 84484; 85025; 85379; 87635; 93005; 93306; 93458; 94660; 97802; 99251; 99285; G2023; J7030; J7040; Q9957; Q9967; A4216; C1769; C8929; G0463; U0003

== ENCOUNTER → 2020-07-04 10:02 | Outpatient (CLI) | payer OTHER, SELFPAY ==
[2020-03-29 09:19] VITALS: BMI 19.8
--- NOTE | 2020-07-04 10:04 | ECHOL_ITS ---
Procedure This was a limited 2D transthoracic echocardiogram. The study was technically difficult. Unable to utilize DefinFunambol due to reaction (12/2019). Exam performed in department. Left Ventricle Normal LV size. Left ventricular systolic function is normal. The estimated ejection fraction is 60 %. No regional wall motion abnormalities noted. Right Ventricle Normal RV size. Normal systolic function. Atria Normal left atrium. Normal right atrium. Mitral Valve Bileaflet diffuse mitral valve thickening. Mild mitral valve prolapse. Mild (1+) eccentric mitral valve insufficiency. Tricuspid Valve Normal tricuspid valve. Moderate (2+) tricuspid valve insufficiency. Pulmonary artery systolic pressure is 30 mmHg. Aortic Valve Trisinus/trileaflet aortic valve. Mild focal aortic valve calcification. Pulmonic Valve Normal pulmonic valve. Great Vessels Normal aortic root. The pulmonary artery is normal size. Normal inferior vena cava. Pericardium/Pleural No pericardial effusion. MMode/2D Measurements & Calculations LVIDd: 5.1 cm IVSd: 0.91 cm LA dimension: 4.0 cm LVIDs: 2.5 cm LVPWd: 1.1 cm RVDd: 3.8 cm FS: 50.1 % LAV(MOD-sp4): 61.4 ml LA A4 area: 19.8 cm2 RA A4 area: 16.3 cm2 Doppler Measurements & Calculations Lat Peak E' Ramo: 6.1 cm/sec Med Peak E' Ramo: 5.3 cm/sec TR max ramo: 256.0 cm/sec TR max P.2 mmHg Interpretation Summary Normal LV size. Left ventricular systolic function is normal. The estimated ejection fraction is 60 %. Mild (1+) eccentric mitral valve insufficiency. Moderate (2+) tricuspid valve insufficiency. Pulmonary artery systolic pressure is 30 mmHg. Compared to previous study, the left ventricular systolic function has improved.. Ordering Physician: Renaldo Powers Referring Physician: Guevara Wright Performed By: Bandar Stubbs RCS
== END ==
PROVIDERS: PCP Family Medicine; Referring Provider Nurse Practitioner Family; Visit Provider Nurse Practitioner Family
DX: I51.81 Takotsubo syndrome (principal); I47.1 Supraventricular tachycardia; I25.10 Atherosclerotic heart disease of native coronary artery without angina pectoris
CPT/HCPCS: 93308